=== PATIENT | male | born 1975 | race Caucasian/White ===

== ENCOUNTER 2018-09-30 09:06 | Emergency (ER) | payer MEDICAID ==
[2018-09-30] MEDS ORDERED: IPRATROPIUM/ALBUTEROL 3 ML DEYVIAL IH ONE (09:46)
[2018-09-30] MEDS ORDERED: predniSONE 20 MG TAB PO ONE (10:14)
--- NOTE | 2018-09-30 10:14 | EDPHY ---
H & P Stated Complaint: cough Time Seen by Provider: 09/30/18 09:19 HPI/ROS: CHIEF COMPLAINT: Cough, URI symptoms x5 days HISTORY OF PRESENT ILLNESS: 43-year-old male arrives via private vehicle complaining URI symptoms a nonproductive cough for 5 days, subjective fever, sore throat . No chest pain. No dyspnea. No back pain. No abdominal pain. No headache. PRIMARY CARE PROVIDER: REVIEW OF SYSTEMS: 10 systems reviewed and negative with the exception of the elements mentioned in the history of present illness PAST MEDICAL & SURGICAL HISTORY: No pertinent medical or surgical history SOCIAL HISTORY: Daily tobacco abuse PHYSICAL EXAM (Prior to examination, patient consented to physical exam, hands were washed and my usual and customary physical exam procedures followed) 1) GENERAL: Well-developed, well-nourished, alert and oriented. Appears nontoxic 2) HEAD: Normocephalic, atraumatic 3) HEENT: Pupils equal, round, reactive to light bilaterally. Sclera anicteric. Nasopharynx, oropharynx, clear, no lesions. Moist Mucous membranes. 4) NECK: Full range of motion, no meningeal signs. 5) LUNGS: Clear auscultation bilaterally, no wheezes, no rhonchi, no retractions. 6) HEART: Regular rate and rhythm, no murmur, no heave, no gallop. 7) ABDOMEN: No guarding, no rebound, no focal tenderness, negative McBurney's, negative Sotomayor's, negative Rovsing's, negative peritoneal sign, 8) MUSCULOSKELETAL: Moving all extremities, no focal areas of tenderness, no obvious trauma. No peripheral edema or discoloration. 9) BACK: No CVA tenderness, no midline vertebral tenderness, no fluctuance, no step-off, no obvious trauma, no visual or palpable abnormality. 10) SKIN: No rash, no petechiae. 11) Psychiatric: Patient is oriented X 3, there is no agitation. DIFFERENTIAL DIAGNOSIS: In no particular order including but not limited to pneumonia, influenza, bronchitis - Personal History Current Tetanus/Diphtheria Vaccine: Yes Current Tetanus Diphtheria and Acellular Pertussis (TDAP): Yes - Medical/Surgical History Hx Asthma: No Hx Chronic Respiratory Disease: No Hx Diabetes: No Hx Cardiac Disease: No Hx Renal Disease: No Hx Cirrhosis: No Hx Alcoholism: No Hx HIV/AIDS: No Hx Splenectomy or Spleen Trauma: No Other PMH: Restless leg syndrome, diverticulosis - Social History Smoking Status: Current every day smoker Constitutional: Initial Vital Signs Temperature (C) 36.9 C 09/30/18 09:10 Heart Rate 125 H 09/30/18 09:10 Respiratory Rate 24 H 09/30/18 09:10 Blood Pressure 112/80 09/30/18 09:10 O2 Sat (%) 92 09/30/18 09:10 O2 Delivery Mode Room Air Allergies/Adverse Reactions: No Known Allergies Allergy (Unverified 09/30/18 09:09) Home Medications: Medication Instructions Recorded Albuterol [Proventil Inhaler HFA 1 - 2 puffs IH Q4PRN PRN #1 mdi 09/30/18 (*)] Azithromycin [Zithromax] 500 mg PO DAILY #1 tablet 09/30/18 Benzonatate [Tessalon Pearles (RX)] 200 mg PO TID PRN #15 cap 09/30/18 Requip 09/30/18 predniSONE [Prednisone] 20 mg PO DAILY #9 tablet 09/30/18 Medical Decision Making - Diagnostics Imaging Results: Imaging Impressions Chest X-Ray 09/30/18 09:19 Impression: Prominence of perihilar interstitial markings and peribronchial cuffing. Findings are nonspecific but can be seen with bronchitis, reactive airway disease, or viral process. Images reviewed myself ED Course/Re-evaluation: 10:15 a.m.: Re-evaluation, patient is sleeping, breathing comfortably appears comfortable. Will ambulate the patient with pulse oxygenation 10:24 a.m.: Patient has been ambulated around the emergency department with pulse ox. Pulse oxygenation between 95 and 96% on room air. Heart rate 89 at this time, respiratory rate 16. I have witnessed him ambulating in the ER and he shows no signs of respiratory distress. Plan will be discharge home. Recommend smoking cessation. Given steroids, albuterol, antibiotic. Patient I discussed his lack of influenza testing however as he has been symptomatic for 1 week he is outside the treatment window. Will hold on influenza testing. Recommend vaccination the future. He feels comfortable being discharged. Patient feels comfortable being discharged. All questions and concerns addressed by myself. Patient given my usual and customary discharge precautions and instructions regarding their clinical impression. Care of patient under supervision of secondary supervising physician Dr Strickland . - Data Points Medications Given: Discontinued Medications Albuterol/Ipratropium (Duoneb) 3 ml IH EDNOW ONE Stop: 09/30/18 09:47 Last Admin: 09/30/18 09:59 Dose: 3 ml Prednisone (Prednisone) 60 mg PO EDNOW ONE Stop: 09/30/18 10:15 Last Admin: 09/30/18 10:27 Dose: 60 mg Departure - Departure Disposition: Home, Routine, Self-Care Clinical Impression: Acute bronchitis Qualifiers: Bronchitis organism: unspecified organism Qualified Code(s): J20.9 - Acute bronchitis, unspecified Condition: Good Instructions: Acute Bronchitis (ED) Additional Instructions: Return to the emergency department immediately for change in breathing habits, change in voice, change in swallowing habits, change in mental status, or any other symptoms that concern you. Referrals: [facility],. [Clinic] - As per Instructions Prescriptions: Albuterol [Proventil Inhaler HFA (*)] 1 - 2 puffs IH Q4PRN PRN #1 mdi PRN Reason: Cough, Moderate Azithromycin [Zithromax] 500 mg PO DAILY #1 tablet Benzonatate [Tessalon Pearles (RX)] 200 mg PO TID PRN #15 cap PRN Reason: Cough, Moderate predniSONE [Prednisone] 20 mg PO DAILY #9 tablet
[2018-09-30 10:35] VITALS: BP 115/83
== END 2018-09-30 10:35 | disposition home or self-care (01) ==
DX: J20.9 Acute bronchitis, unspecified (principal); F17.200 Nicotine dependence, unspecified, uncomplicated
CPT/HCPCS: J7512